=== PATIENT | female | born 1980 | race Caucasian/White ===

== ENCOUNTER 2018-01-14 11:57 | Inpatient (IN) ==
--- NOTE | 2018-01-14 12:03 | Emergency Department Note ---
Disposition Clinical Impression: Suicidal ideation Disposition: Admitted As Inpatient Condition: Fair Time of Disposition: 15:11 Psych HPI - General Chief Complaint: ED Psychiatric Symptoms Stated Complaint: suicidal Source: patient, EMS Mode of arrival: EMS Limitations: no limitations Nursing Notes Reviewed: Yes Vital Signs Reviewed: Yes - History of Present Illness HPI Narrative: 37-year-old female history of anxiety and bipolar presents emergency department via EMS for suicidal ideation. Patient has been feeling more depressed since yesterday and called her counselor to be evaluated today. Patient reports taking Zoloft, Vesteril, Klonopin for her psychiatric issues for many years. She reports about a month ago per psychiatry her Geodon was discontinued. Denies taking any other mood stabilizer like [place]. Since then she has been feeling more depressed. Her psychiatrist is Dr. Ladd who evaluated her today at [facility] and sent her for further evaluation. [place] slip signed by [facility] and present with her on transport. She had thoughts of overdosing on her medications or purposely getting in a car accident. She denies history of suicide attempt. She denies any alcohol or recreational drug use. She denies history of admission to psychiatric unit at [facility]. She denies any hallucinations. Denies any physical complaints such as chest pain, shortness of breath, abdominal pain or injuries. Patient is tearful and very anxious. Will obtain medical clearance and have her evaluated by psychiatric service. Pt complaint: suicidal ideation, feels depressed - Related Data Home Medications Medication Instructions Recorded Confirmed Ergocalciferol (VITAMIN D2) 50,000 unit PO QWEEK 01/14/18 01/14/18 [Vitamin D2] Frovatriptan Succinate [Frova] 2.5 mg PO Q2H PRN MDD 5 mg 01/14/18 01/14/18 Losartan Potassium [Cozaar] 50 mg PO DAILY 01/14/18 01/14/18 Sertraline [Zoloft] 100 mg PO DAILY 01/14/18 01/14/18 Valproic Acid [Depakene] 250 mg PO BID 01/14/18 01/14/18 clonazePAM [Klonopin] 1 mg PO BID 01/14/18 01/14/18 hydrOXYzine pamoate [HydrOXYzine 25 - 50 mg PO TID 01/14/18 01/14/18 Pamoate] Allergies Allergy/AdvReac Type Severity Reaction Status Date / Time doxycycline Allergy Unknown Hives Unverified 01/14/18 14:27 All systems ED: reviewed and negative except as stated. Review of Systems: As Per HPI Constitutional: Denies: fever Cardiovascular: Denies: chest pain Respiratory: Denies: cough, dyspnea Gastrointestinal: Denies: abdominal pain, nausea, vomiting Musculoskeletal: Denies: back pain Psychiatric: Reports: anxiety, depression, suicidal thoughts. Denies: auditory hallucinations, visual hallucinations Past Medical History - Past Medical History Attestation: Yes The following information was validated with the patient. Source: patient Physical Exam - General Limitations: no limitations General appearance: alert, in no apparent distress, other (tearful) - Head Head exam: atraumatic, normocephalic, normal inspection - Eye Eye exam: Present: normal appearance, PERRL, EOMI - ENT ENT exam: normal exam, normal oropharynx, mucous membranes moist - Chest Chest inspection: Present: normal inspection, symmetric chest wall rise - Respiratory Respiratory exam: Present: normal lung sounds bilaterally. Absent: respiratory distress, wheezes - Cardiovascular Cardiovascular exam: Present: regular rate, normal rhythm, normal heart sounds - Abdominal Exam Abdominal exam: Present: soft, Non-Tender. Absent: tenderness, distention, guarding, rebound, rigidity - Extremities Exam Extremities exam: Present: normal inspection, full ROM. Absent: tenderness, pedal edema - Back Exam Back exam: Present: normal inspection, full ROM. Absent: tenderness - Neurological Exam Neurological exam: Present: alert, oriented X3, normal gait - Psychiatric Psychiatric exam: Present: depressed, anxious, suicidal ideation - Skin Skin exam: Present: warm, dry, intact, normal color. Absent: cyanosis, diaphoresis Course Course Narrative: Patient is tearful and very anxious. Will obtain medical clearance and have her evaluated by psychiatric service. [place] slip on the patient's chart. She is cooperative. Unremarkable physical exam. - Reevaluation(s) Reevaluation #1: Patient medically cleared. Patient was evaluated by [facility]. Plan to accept the patient after Depakote level. Patients also complaining of some headache will give Tylenol. Patient will be admitted for suicidal ideation. Time: 15:10 Reevaluation #2: Depakote level is low at 33. Patient takes 250 mg BID per medication list. Vital Signs Temperature 98.3 F 01/14/18 12:01 Pulse Rate 94 01/14/18 12:01 Respiratory Rate 18 01/14/18 12:01 Blood Pressure 154/107 01/14/18 12:01 O2 Sat by Pulse Oximetry 98 01/14/18 12:01 Temperature 98.3 F 01/14/18 12:10 Pulse Rate 75 01/14/18 14:35 Respiratory Rate 16 01/14/18 14:35 Blood Pressure 132/83 01/14/18 14:35 O2 Sat by Pulse Oximetry 99 01/14/18 14:35 Oxygen Delivery Oxygen Delivery Room Air Psych - MDM Narrative Medical decision making narrative: Patient was discussed with my attending physician who agrees with ED management and final disposition. They independently evaluated the patient. Please refer to their attestation to this encounter for additional information. This note was generated by [employer] voice recognition software and as a result grammatical or spelling errors may occur using this program. - Medical Records Medical records reviewed: Yes I reviewed the patient's medical records. - Lab Data Result diagrams: 01/14/18 12:25 01/14/18 12:25 Lab Results 01/14/18 01/14/18 01/14/18 Range/Units 12:25 12:25 12:30 WBC 10.3 (4.3-11.1) K/mcL RBC 4.98 H (3.82-4.97) M/mcL Hgb 15.8 H (11.5-15.4) g/dL Hct 44.3 (35.3-44.9) % MCV 89.0 (83.0-100.0) fL MCH 31.7 (28.0-33.3) pg MCHC 35.7 H (31.6-35.5) g/dL RDW 12.0 (11.5-14.5) % Plt Count 325 (140-400) K/mcL MPV 9.8 (9.4-12.4) fL Immature Gran % 0.3 (0-4) % Seg Neutrophils % 62.8 % Lymphocytes % 29.5 % Monocytes % 4.4 % Eosinophils % 2.2 % Basophils % 0.8 % Neutrophils # 6.5 (1.6-8.9) K/mcL Lymphocytes # 3.0 (0.6-4.6) K/mcL Monocytes # 0.5 (0.0-1.3) K/mcL Eosinophils # 0.2 (0.0-0.6) K/mcL Basophils # 0.1 (0.0-0.2) K/mcL Sodium 136 (136-145) mEq/L Potassium 3.6 (3.5-5.1) mEq/L Chloride 106 (98-107) mEq/L Carbon Dioxide 23 (23-29) mEq/L BUN 9 (6-20) mg/dL Creatinine 0.81 (0.60-1.20) mg/dL Est GFR ( Amer) > 60 (> 60) Est GFR (Non-Af Amer) > 60 (> 60) BUN/Creatinine Ratio 11 (6-26) Glucose 92 (70-105) mg/dL Calculated Osmolality 280 (280-300) Calcium 9.3 (8.6-10.3) mg/dL Urine Color Yellow (Yellow) Urine Clarity Cloudy A (Clear) Urine pH 7.0 (5.0-8.0) pH Units Ur Specific [place] 1.008 L (1.010-1.025) Urine Protein Negative (Neg-Trace) mg/dL Urine Glucose (UA) Normal (Normal) mg/dL Urine Ketones Negative (Negative) mg/dL Urine Blood Trace H (Negative) Urine Nitrite Negative (Negative) Urine Bilirubin Negative (Negative) Urine Urobilinogen Normal (Normal) mg/dL Ur Leukocyte Esterase Negative (Negative) Urine Microscopic RBC 5-15 H (0-3) per hpf Urine Microscopic WBC 0-3 (0-3) per hpf Ur Squamous Epith Cells Many H (None-Few) per lpf Urine Bacteria None Seen (None-Few) per hpf Hyaline Casts None Seen (None-Few) per lpf Salicylates < 2.5 L (15.0-30.0) mg/dL Urine Opiates Screen (Czyimz=800) ng/mL Acetaminophen < 10 L (10-20) mcg/mL Ur Barbiturates Screen (Covwwv=125) ng/mL Valproic Acid 33 L (50-100) mcg/mL Ur Phencyclidine Scrn (Cutoff=25) ng/mL Ur Amphetamines Screen (Rwduie=2490) ng/mL U Benzodiazepines Scrn (Ozmnyj=525) ng/mL Urine Cocaine Screen (Cutoff= 300) ng/mL U Marijuana (THC) Screen (Cutoff = 50) ng/mL Ethyl Alcohol < 10 (Less than 10) mg/dL 01/14/18 Range/Units 12:30 WBC (4.3-11.1) K/mcL RBC (3.82-4.97) M/mcL Hgb (11.5-15.4) g/dL Hct (35.3-44.9) % MCV (83.0-100.0) fL MCH (28.0-33.3) pg MCHC (31.6-35.5) g/dL RDW (11.5-14.5) % Plt Count (140-400) K/mcL MPV (9.4-12.4) fL Immature Gran % (0-4) % Seg Neutrophils % % Lymphocytes % % Monocytes % % Eosinophils % % Basophils % % Neutrophils # (1.6-8.9) K/mcL Lymphocytes # (0.6-4.6) K/mcL Monocytes # (0.0-1.3) K/mcL Eosinophils # (0.0-0.6) K/mcL Basophils # (0.0-0.2) K/mcL Sodium (136-145) mEq/L Potassium (3.5-5.1) mEq/L Chloride (98-107) mEq/L Carbon Dioxide (23-29) mEq/L BUN (6-20) mg/dL Creatinine (0.60-1.20) mg/dL Est GFR ( Amer) (> 60) Est GFR (Non-Af Amer) (> 60) BUN/Creatinine Ratio (6-26) Glucose (70-105) mg/dL Calculated Osmolality (280-300) Calcium (8.6-10.3) mg/dL Urine Color (Yellow) Urine Clarity (Clear) Urine pH (5.0-8.0) pH Units Ur Specific [place] (1.010-1.025) Urine Protein (Neg-Trace) mg/dL Urine Glucose (UA) (Normal) mg/dL Urine Ketones (Negative) mg/dL Urine Blood (Negative) Urine Nitrite (Negative) Urine Bilirubin (Negative) Urine Urobilinogen (Normal) mg/dL Ur Leukocyte Esterase (Negative) Urine Microscopic RBC (0-3) per hpf Urine Microscopic WBC (0-3) per hpf Ur Squamous Epith Cells (None-Few) per lpf Urine Bacteria (None-Few) per hpf Hyaline Casts (None-Few) per lpf Salicylates (15.0-30.0) mg/dL Urine Opiates Screen Negative (Ovtqdr=937) ng/mL Acetaminophen (10-20) mcg/mL Ur Barbiturates Screen Positive H (Khjvbv=451) ng/mL Valproic Acid (50-100) mcg/mL Ur Phencyclidine Scrn Negative (Cutoff=25) ng/mL Ur Amphetamines Screen Negative (Ehwmsq=5139) ng/mL U Benzodiazepines Scrn Negative (Uywdrx=808) ng/mL Urine Cocaine Screen Negative (Cutoff= 300) ng/mL U Marijuana (THC) Screen Negative (Cutoff = 50) ng/mL Ethyl Alcohol (Less than 10) mg/dL Psychiatric Medical Clearance - Medical Clearance Checklist Medical History: No Social History Section defined Current Vitals: Last Vital Signs Temp 98.3 F 01/14/18 12:10 Pulse 75 01/14/18 14:35 Resp 16 01/14/18 14:35 BP 132/83 01/14/18 14:35 Pulse Ox 99 01/14/18 14:35 Psychiatric Lab Panel: Drug Levels and Toxicity 01/14/18 01/14/18 12:25 12:30 Urine Opiates Screen Negative Acetaminophen < 10 L Ur Barbiturates Screen Positive H Ur Phencyclidine Scrn Negative Ur Amphetamines Screen Negative U Benzodiazepines Scrn Negative Urine Cocaine Screen Negative U Marijuana (THC) Screen Negative Ethyl Alcohol < 10 Abnormal Labs: Abnormal lab results RBC 4.98 M/mcL (3.82-4.97) H 01/14/18 12:25 Hgb 15.8 g/dL (11.5-15.4) H 01/14/18 12:25 MCHC 35.7 g/dL (31.6-35.5) H 01/14/18 12:25 Urine Clarity Cloudy (Clear) A 01/14/18 12:30 Ur Specific [place] 1.008 (1.010-1.025) L 01/14/18 12:30 Urine Blood Trace (Negative) H 01/14/18 12:30 Urine Microscopic RBC 5-15 per hpf (0-3) H 01/14/18 12:30 Ur Squamous Epith Cells Many per lpf (None-Few) H 01/14/18 12:30 Salicylates < 2.5 mg/dL (15.0-30.0) L 01/14/18 12:25 Acetaminophen < 10 mcg/mL (10-20) L 01/14/18 12:25 Ur Barbiturates Screen Positive ng/mL (Gfjpcx=183) H 01/14/18 12:30 Valproic Acid 33 mcg/mL (50-100) L 01/14/18 12:25 Statement of Medical Clearance: I have evaluated the patient, reviewed diagnostic information, and certify that the patient's medical condition is sufficiently stable that transfer to the psychiatric unit does not pose a significant risk of deterioration.
--- NOTE | 2018-01-14 12:14 | Emergency Department Note ---
Disposition Clinical Impression: Suicidal ideation Disposition: Still a Patient Condition: Fair Forms: ED Satisfaction Letter General Adult HPI - General Chief complaint: ED Psychiatric Symptoms Stated complaint: suicidal Source: patient, EMS Mode of arrival: EMS Limitations: no limitations - History of Present Illness Pain Scale: 0 - Related Data Home Medications Medication Instructions Recorded Confirmed No Known Home Drugs 01/14/18 01/14/18 Allergies Allergy/AdvReac Type Severity Reaction Status Date / Time doxycycline Allergy Unknown Hives Unverified 07/12/17 00:09 Constitutional: Denies: fever Cardiovascular: Denies: chest pain Respiratory: Denies: cough, dyspnea Gastrointestinal: Denies: abdominal pain, nausea, vomiting Musculoskeletal: Denies: back pain Psychiatric: Reports: anxiety, depression, suicidal thoughts. Denies: auditory hallucinations, visual hallucinations Past Medical History - Past Medical History Medical history: Reports: hyperlipidemia, hypertension, migraine, seizures Psychiatric history: Reports: anxiety, depression - Social History Smoking Status: Current every day smoker Smokeless Tobacco Status: No Alcohol use: Reports: none Drug use: Reports: none Physical Exam - General Limitations: no limitations General appearance: alert, in no apparent distress, other (tearful) Course - Reevaluation(s) Reevaluation #1: ATTESTATION NOTE I examined this patient and my medical decision-making was reviewed with the STORAGE WORKER/PA/Advanced Practice Nurse/Resident Physician. I agree with the documented findings, disposition and treatment plan as described except to the extent set forth below. ED attending note: Patient seen with emergency medicine resident Dr. Alex Newby. We independently evaluated the patient. We independently had face-to- face contact with the patient. Please see a copy of his note for details of the history and physical, evaluation, management and disposition of this emergency Department patient. Briefly: 37-year-old female history of anxiety and bipolar disorder presents by EMS from an outpatient mental health clinic for suicidal ideations. Patient has been off her psych medications per her mental health provider for about a month no particular stressors when she went for an interview this morning in the clinic she started for suicidal ideations and a plan for ultrasound overdose my medicines". Patient was pink slipped and transported here for medical evaluation clearance and then mental health evaluation and placement. Disposition pending. He is awake alert cooperative and comfortable. Time: 12:13 Vital Signs Temperature 98.3 F 01/14/18 12:01 Pulse Rate 94 01/14/18 12:01 Respiratory Rate 18 01/14/18 12:01 Blood Pressure 154/107 01/14/18 12:01 O2 Sat by Pulse Oximetry 98 01/14/18 12:01 Temperature 98.3 F 01/14/18 12:10 Pulse Rate 94 01/14/18 12:10 Respiratory Rate 18 01/14/18 12:10 Blood Pressure 154/107 01/14/18 12:10 O2 Sat by Pulse Oximetry 98 01/14/18 12:10 Oxygen Delivery Oxygen Delivery Room Air
[2018-01-14 12:36] LABS: Basophils # 0.1 K/mcL (0.0-0.2); Basophils % 0.8 %; Eosinophils # 0.2 K/mcL (0.0-0.6); Eosinophils % 2.2 %; Hematocrit 44.3 % (35.3-44.9); Hemoglobin 15.8 g/dL (11.5-15.4); Immature Granulocytes % 0.3 % (0-4); Lymphocytes % 29.5 %; Mean Corpuscular HGB Conc 35.7 g/dL (31.6-35.5); Mean Corpuscular Hemoglobin 31.7 pg (28.0-33.3); Mean Platelet Volume 9.8 fL (9.4-12.4); Monocytes # 0.5 K/mcL (0.0-1.3); Monocytes % 4.4 %; Neutrophils # 6.5 K/mcL (1.6-8.9); Platelet Count 325 K/mcL (140-400); Red Blood Count 4.98 M/mcL (3.82-4.97); Segmented Neutrophils % 62.8 %
[2018-01-14 12:41] LABS: Bilirubin,Urine Negative (Negative); Blood,Urine Trace (Negative); Clarity,Urine Cloudy (Clear); Color,Urine Yellow (Yellow); Glucose,Urine (UA) Normal (Normal); Ketones,Urine Negative (Negative); Leukocyte Esterase,Urine Negative (Negative); Nitrite,Urine Negative (Negative); Protein,Urine Negative (Neg-Trace); Specific Gravity,Urine 1.008 (1.010-1.025); Urobilinogen,Urine Normal (Normal)
[2018-01-14 12:43] LABS: Bacteria,Urine None Seen per hpf (None-Few); Hyaline Casts,Urine None Seen per lpf (None-Few); Squamous Epithelial Cell,Urine Many per lpf (None-Few); WBC,Urine 0-3 per hpf (0-3)
[2018-01-14 12:58] LABS: Acetaminophen < 10 mcg/mL (10-20); BUN/Creatinine Ratio 11 (6-26); Blood Urea Nitrogen 9 mg/dL (6-20); Calcium 9.3 mg/dL (8.6-10.3); Carbon Dioxide 23 mEq/L (23-29); Chloride 106 mEq/L (98-107); Ethanol < 10 mg/dL (Less than 10); Glucose 92 mg/dL (70-105); Osmolality,Calculated 280 (280-300); Potassium 3.6 mEq/L (3.5-5.1); Salicylate < 2.5 mg/dL (15.0-30.0); Sodium 136 mEq/L (136-145); eGFR For African Americans > 60 (> 60); eGFR For Non-African Americans > 60 (> 60)
[2018-01-14 13:42] LABS: Amphetamine Screen,Urine Negative ng/mL (Cutoff=1000); Barbiturate Screen,Urine Positive ng/mL (Cutoff=200); Benzodiazepines Screen,Urine Negative ng/mL (Cutoff=200); Cannabinoid Screen,Urine Negative ng/mL (Cutoff = 50); Cocaine Screen,Urine Negative ng/mL (Cutoff= 300); Opiate Screen,Urine Negative ng/mL (Cutoff=300); Phencyclidine Screen,Urine Negative ng/mL (Cutoff=25)
[2018-01-14 15:51] LABS: Valproate 33 mcg/mL (50-100)
[2018-01-14] MEDS ORDERED: Acetaminophen 325 MG TABLET PO PRN (16:50)
[2018-01-14] MEDS ORDERED: *HR* LORazepam 1 MG TABLET PO PRN (16:50)
[2018-01-14] MEDS ORDERED: *HR* LORazepam 2 MG/ML VIAL IM PRN (16:50)
[2018-01-14] MEDS ORDERED: Mag Hydrox/Al Hydrox/Simeth 30 ML UDC PO PRN (16:50)
[2018-01-14] MEDS ORDERED: MOM Conc 10 ML UD.LIQ PO PRN (16:50)
[2018-01-14] MEDS ORDERED: Haloperidol Lactate 5 MG/ML VIAL IM PRN (16:50)
[2018-01-14] MEDS ORDERED: hydrOXYzine pamoate 25 MG CAPSULE PO PRN (16:50)
[2018-01-14] MEDS: clonazePAM 1 MG TABLET PO SCH ×2 (17:52→22:00)
[2018-01-14] MEDS: Nicotine 21 MG PATCH.TD24 TD SCH (17:53)
[2018-01-14] MEDS: hydrOXYzine pamoate 25 MG CAPSULE PO SCH (20:35)
[2018-01-14] MEDS: traZODone 50 MG TABLET PO PRN (20:35)
[2018-01-14] MEDS: Valproic Acid 250 MG CAPSULE PO SCH (21:12)
[2018-01-15] MEDS: Nicotine 21 MG PATCH.TD24 TD SCH (10:30)
[2018-01-15] MEDS: clonazePAM 1 MG TABLET PO SCH (10:30)
[2018-01-15] MEDS: Valproic Acid 250 MG CAPSULE PO SCH ×2 (10:30→21:31)
[2018-01-15] MEDS: hydrOXYzine pamoate 25 MG CAPSULE PO SCH ×3 (10:30→21:32)
[2018-01-15] MEDS ORDERED: clonazePAM 0.5 MG TABLET PO PRN (11:54)
--- NOTE | 2018-01-15 12:02 | Psychiatry History & Physical ---
Date of Encounter: 01/15/18 Time of Encounter: 11:20 History of Present Illness Patient Stated Chief Complaint: Depression and suicidal ideation Medicare Admission Attestation: For traditional Medicare patients the provided hospital inpatient services are reasonable and necessary and in the case of services not specified as inpatient -only under 42 CFR 419.22 (n), that they are appropriately provided as inpatient services in accordance 42 CFR 412.3. For Critical Access Hospital the patient may reasonably be expected to be discharged or transferred to a hospital within 96 hours after admission to the Critical Access Hospital. Admitted From: Emergency Dept History of Present Illness: Ms. Richard is a 37 year old female referred for admission from Dr. Arreola's office for depression and suicidal ideation. Patient had long history of treatment for bipolar disorder and an anxiety disorder and has been on medication with medication changes recently. Patient reports increasing depression hypersomnia and fatigue, inability to function and has been taking time off from work and using medication time because she is unable to attend work schedule. Also she reports having new medication added Depakote for what would be seizures. Records indicated the patient was seen and evaluated by neurology and cardiology to assess episodes of unresponsiveness, they concluded that neither seizure or syncope can be considered and they considered an anxiety related. This episode started in the last year or so. Past Med Surg Social Fam HX - Past Medical History Medical history: hyperlipidemia, hypertension, migraine, seizures - Past Psychiatric History Psychiatric history: Reports: bipolar, depression - Social History Smoking Status: Current every day smoker Smokeless Tobacco Status: No Alcohol use: none Drug use: none Medications & Allergies Ergocalciferol (VITAMIN D2) [Vitamin D2] 50,000 unit PO QWEEK 01/14/18 [History] Frovatriptan Succinate [Frova] 2.5 mg PO Q2H PRN MDD 5 mg 01/14/18 [History] Losartan Potassium [Cozaar] 50 mg PO DAILY 01/14/18 [History] Sertraline [Zoloft] 100 mg PO DAILY 01/14/18 [History] Valproic Acid [Depakene] 250 mg PO BID 01/14/18 [History] clonazePAM [Klonopin] 1 mg PO BID 01/14/18 [History] hydrOXYzine pamoate [HydrOXYzine Pamoate] 25 - 50 mg PO TID 01/14/18 [History] 3 Allergy/AdvReac Type Severity Reaction Status Date / Time doxycycline Allergy Unknown Hives Verified 01/14/18 17:19 Review of Systems Psychiatric: Reports: depression, anxiety, abnormal sleep pattern, suicidal ideation, change in appetite, anhedonia, difficulty concentrating Exam - HEENT Head exam IM: Present: atraumatic Eye exam IM: Present: EOMI, normal appearance, PERRL ENT exam IM: Present: normal exam - Neurological Neurological exam: Present: CN II-XII intact - Respiratory Respiratory exam IM: Present: CTAB - GI/Abdominal GI/Abdominal exam IM: Present: normal bowel sounds, soft. Absent: tenderness - Extremities Extremities exam IM: Present: full ROM - Skin Skin exam IM: Present: dry, warm - Constitutional Vitals: Temp Pulse Resp BP Pulse Ox 99.3 F 20 87 145/107 99 01/15/18 09:00 01/15/18 09:00 01/15/18 09:00 01/15/18 09:00 01/14/18 14:35 General appearance: age & developmentally appropriate, well-groomed, well- nourished, obese - Musculoskeletal Gait: normal Station: relaxed Strength & Tone: normal for patient - Psychiatric Patient Orientation: Yes Person, Yes Time, Yes Place Level of alertness: Alert, Sedated Behavior: calm, cooperative, withdrawn Psychomotor activity: Slowed Eye Contact: Maintains Eye Contact Mood Description: Depressed, Anxious Affect description: congruent with mood, constricted, blunted Speech Volume: Normal, Soft/Quiet Speech pattern: normal rate, normal rhythm, normal tone, fluent, spontaneous Language & Vocabulary: consistent with education Thought Process: Linear, Goal Oriented Thought Content: Yes Suicidal ideation, No Homicidal ideation, No Overt delusions Perceptual Disturbances: No Auditory hallucinations, No Visual hallucinations Attention Span Ability: Capable of Focused Attention Memory Description: Grossly Intact Patient Reliability: Reliable Historian Fund of knowledge: Yes abstraction ability, Yes average, Yes aware of current events Intelligence Estimate: Average Judgment: Limited Insight: Partial Results - Labs Labs: Laboratory Last Values WBC 10.3 K/mcL (4.3-11.1) 01/14/18 12:25 RBC 4.98 M/mcL (3.82-4.97) H 01/14/18 12:25 Hgb 15.8 g/dL (11.5-15.4) H 01/14/18 12:25 Hct 44.3 % (35.3-44.9) 01/14/18 12:25 MCV 89.0 fL (83.0-100.0) 01/14/18 12:25 MCH 31.7 pg (28.0-33.3) 01/14/18 12:25 MCHC 35.7 g/dL (31.6-35.5) H 01/14/18 12:25 RDW 12.0 % (11.5-14.5) 01/14/18 12:25 Plt Count 325 K/mcL (140-400) 01/14/18 12:25 MPV 9.8 fL (9.4-12.4) 01/14/18 12:25 Immature Gran % 0.3 % (0-4) 01/14/18 12:25 Seg Neutrophils % 62.8 % 01/14/18 12:25 Lymphocytes % 29.5 % 01/14/18 12:25 Monocytes % 4.4 % 01/14/18 12:25 Eosinophils % 2.2 % 01/14/18 12:25 Basophils % 0.8 % 01/14/18 12:25 Neutrophils # 6.5 K/mcL (1.6-8.9) 01/14/18 12:25 Lymphocytes # 3.0 K/mcL (0.6-4.6) 01/14/18 12:25 Monocytes # 0.5 K/mcL (0.0-1.3) 01/14/18 12:25 Eosinophils # 0.2 K/mcL (0.0-0.6) 01/14/18 12:25 Basophils # 0.1 K/mcL (0.0-0.2) 01/14/18 12:25 Sodium 136 mEq/L (136-145) 01/14/18 12:25 Potassium 3.6 mEq/L (3.5-5.1) 01/14/18 12:25 Chloride 106 mEq/L (98-107) 01/14/18 12:25 Carbon Dioxide 23 mEq/L (23-29) 01/14/18 12:25 BUN 9 mg/dL (6-20) 01/14/18 12:25 Creatinine 0.81 mg/dL (0.60-1.20) 01/14/18 12:25 Est GFR ( Amer) > 60 (> 60) 01/14/18 12:25 Est GFR (Non-Af Amer) > 60 (> 60) 01/14/18 12:25 BUN/Creatinine Ratio 11 (6-26) 01/14/18 12:25 Glucose 92 mg/dL (70-105) 01/14/18 12:25 Calculated Osmolality 280 (280-300) 01/14/18 12:25 Calcium 9.3 mg/dL (8.6-10.3) 01/14/18 12:25 Urine Color Yellow (Yellow) 01/14/18 12:30 Urine Clarity Cloudy (Clear) A 01/14/18 12:30 Urine pH 7.0 pH Units (5.0-8.0) 01/14/18 12:30 Ur Specific [place] 1.008 (1.010-1.025) L 01/14/18 12:30 Urine Protein Negative mg/dL (Neg-Trace) 01/14/18 12:30 Urine Glucose (UA) Normal mg/dL (Normal) 01/14/18 12:30 Urine Ketones Negative mg/dL (Negative) 01/14/18 12:30 Urine Blood Trace (Negative) H 01/14/18 12:30 Urine Nitrite Negative (Negative) 01/14/18 12:30 Urine Bilirubin Negative (Negative) 01/14/18 12:30 Urine Urobilinogen Normal mg/dL (Normal) 01/14/18 12:30 Ur Leukocyte Esterase Negative (Negative) 01/14/18 12:30 Urine Microscopic RBC 5-15 per hpf (0-3) H 01/14/18 12:30 Urine Microscopic WBC 0-3 per hpf (0-3) 01/14/18 12:30 Ur Squamous Epith Cells Many per lpf (None-Few) H 01/14/18 12:30 Urine Bacteria None Seen per hpf (None-Few) 01/14/18 12:30 Hyaline Casts None Seen per lpf (None-Few) 01/14/18 12:30 Urine Test Negative (Negative) 01/14/18 12:30 Salicylates < 2.5 mg/dL (15.0-30.0) L 01/14/18 12:25 Urine Opiates Screen Negative ng/mL (Mpyavd=801) 01/14/18 12:30 Acetaminophen < 10 mcg/mL (10-20) L 01/14/18 12:25 Ur Barbiturates Screen Positive ng/mL (Xqhwhg=978) H 01/14/18 12:30 Valproic Acid 33 mcg/mL (50-100) L 01/14/18 12:25 Ur Phencyclidine Scrn Negative ng/mL (Cutoff=25) 01/14/18 12:30 Ur Amphetamines Screen Negative ng/mL (Kbptvi=8148) 01/14/18 12:30 U Benzodiazepines Scrn Negative ng/mL (Holqka=044) 01/14/18 12:30 Urine Cocaine Screen Negative ng/mL (Cutoff= 300) 01/14/18 12:30 U Marijuana (THC) Screen Negative ng/mL (Cutoff = 50) 01/14/18 12:30 Ethyl Alcohol < 10 mg/dL (Less than 10) 01/14/18 12:25 Assessment and Plan (1) Bipolar disorder current episode depressed Current visit: Yes Status: Acute Plan: Admit inpatient for safety and stabilization, Close observation, Suicide Precautions per unit protocol, Encourage participation in unit milieu, Group Therapy, Monitor sleep, Monitor appetite Additional Plan: Effexor XR 75 mg daily. Benefits and side effects were discussed with the patient she is agreeable to start Decrease Klonopin to 0.5 mg twice a day when necessary for anxiety. Risks, benefits, side effects, alternatives discussed w/pt: Yes Patient agreeable to treatment: Yes Qualifiers: Qualified Code(s): F31.4 - Bipolar disorder, current episode depressed, severe, without psychotic features
[2018-01-15] MEDS: Venlafaxine XR (24 HR) 75 MG CAP.ER.24H PO SCH (13:58)
[2018-01-15] MEDS: traZODone 50 MG TABLET PO PRN (21:32)
[2018-01-15] MEDS: FROVATRIPTAN SUCCINATE 2.5 MG PO PRN (21:35)
--- NOTE | 2018-01-16 10:57 | Psychiatry Progress Note ---
Date of Encounter: 01/16/18 Time of Encounter: 10:30 Subjective Interval history: Patient seen for follow-up. Case discussed with nursing staff. Staff report she is depressed with flat affect and seclusive to her room. She denies any problem with sleep continued to complain of feeling tired and fatigued. I had a long discussion with her regarding her treatment history and previous medications. 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 Prior to this she believe she was functioning adequate level. Encourage her to journal her thoughts and her interest and activities that she stopped doing and challenge herself to do it while medication changes are being done. Review of Systems Psychiatric: Reports: depression, anxiety, abnormal sleep pattern, suicidal ideation, change in appetite, anhedonia, difficulty concentrating Results - Vital Signs Vital Signs: Temp Pulse Resp BP Pulse Ox 97.6 F 87 18 130/92 99 01/16/18 09:00 01/16/18 09:00 01/16/18 09:00 01/16/18 09:00 01/14/18 14:35 Assessment and Plan (1) Bipolar disorder current episode depressed Current visit: Yes Status: Acute Plan: Continue hospitalization, Close observation, Suicide Precautions per unit protocol, Encourage participation in unit milieu, Group Therapy, Monitor sleep, Monitor appetite Risks, benefits, side effects, alternatives discussed w/pt: Yes Patient agreeable to treatment: Yes Consult Discharge Plan - Plan Referrals: [facility] [Outside] - 01/21/18 3:00 pm (The above appointment is with Yareli Shirley for mental health counseling services. You will also see Dr. Messina for outpatient psychiatric assessment and medication management services on 02/03/2018 at 1:00 PM. Please note this is a new appointment date and time. Your previously scheduled appointment with Dr. Messina had to be changed. Please arrive 10 minutes early to all appointments to complete the check-in process. Please bring your insurance card (or [facility] award letter) and photo ID. If you are unable to keep any scheduled appointment, 24 hour business notice of cancellation is expected. The above appointment(s) reflects first availability. You may contact the office regularly to check for cancellations that may allow you to be seen sooner. ) Psychiatry Exam - Constitutional Vitals: Temp Pulse Resp BP Pulse Ox 97.6 F 87 18 130/92 99 01/16/18 09:00 01/16/18 09:00 01/16/18 09:00 01/16/18 09:00 01/14/18 14:35 General appearance: age & developmentally appropriate, well-groomed, well- nourished, obese - Musculoskeletal Gait: normal Station: relaxed Strength & Tone: normal for patient - Psychiatric Patient Orientation: Yes Person, Yes Time, Yes Place Level of alertness: Alert Behavior: calm, cooperative, guarded Psychomotor activity: Slowed Eye Contact: Maintains Eye Contact Mood Description: Euthymic/stable, Depressed Affect description: congruent with mood, constricted Speech Volume: Normal Speech pattern: normal rate, normal rhythm, normal tone, fluent, spontaneous Language & Vocabulary: consistent with education Thought Process: Linear, Goal Oriented Thought Content: No Suicidal ideation, No Homicidal ideation, No Overt delusions Perceptual Disturbances: No Auditory hallucinations, No Visual hallucinations Attention Span Ability: Capable of Focused Attention Memory Description: Grossly Intact Patient Reliability: Reliable Historian Fund of knowledge: Yes abstraction ability, Yes aware of current events Intelligence Estimate: Average Judgment: Limited Insight: Partial
[2018-01-16] MEDS: Nicotine 21 MG PATCH.TD24 TD SCH (11:35)
[2018-01-16] MEDS: hydrOXYzine pamoate 25 MG CAPSULE PO SCH ×3 (11:36→21:44)
[2018-01-16] MEDS: Valproic Acid 250 MG CAPSULE PO SCH ×2 (11:36→21:44)
[2018-01-16] MEDS: Venlafaxine XR (24 HR) 75 MG CAP.ER.24H PO SCH (11:36)
[2018-01-16] MEDS: FROVATRIPTAN SUCCINATE 2.5 MG PO PRN (14:01)
[2018-01-16] MEDS: traZODone 50 MG TABLET PO PRN (21:44)
[2018-01-17] MEDS: Nicotine 21 MG PATCH.TD24 TD SCH (08:54)
[2018-01-17] MEDS: hydrOXYzine pamoate 25 MG CAPSULE PO SCH ×3 (08:55→21:28)
[2018-01-17] MEDS: Valproic Acid 250 MG CAPSULE PO SCH ×2 (08:56→21:28)
[2018-01-17] MEDS: Venlafaxine XR (24 HR) 75 MG CAP.ER.24H PO SCH (08:56)
--- NOTE | 2018-01-17 11:37 | Psychiatry Progress Note ---
Date of Encounter: 01/17/18 Time of Encounter: 10:50 Subjective Interval history: Patient seen for follow-up. Case discussed was nursing staff. Staff reports she is compliant with medication seclusive to her room most of the time but interacts appropriately with peers and staff. She denies suicidal ideation. She continued to show blunted affect and some degree of psychomotor retardation. She is emotionally passive and was encouraged to make notes regarding activities and hobbies that can be enjoyable and she is working on assignments. 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 Continued to be guarded. Review of Systems Psychiatric: Reports: depression, anxiety, abnormal sleep pattern, suicidal ideation, change in appetite, anhedonia, difficulty concentrating Results - Vital Signs Vital Signs: Temp Pulse Resp BP Pulse Ox 98 F 88 16 121/82 99 01/17/18 09:00 01/17/18 09:00 01/17/18 09:00 01/17/18 09:00 01/14/18 14:35 Assessment and Plan (1) Bipolar disorder current episode depressed Current visit: Yes Status: Acute Plan: Continue hospitalization, Close observation, Suicide Precautions per unit protocol, Encourage participation in unit milieu, Group Therapy, Monitor sleep, Monitor appetite Risks, benefits, side effects, alternatives discussed w/pt: Yes Patient agreeable to treatment: Yes Consult Discharge Plan - Plan Referrals: [facility] [Outside] - 01/21/18 3:00 pm (The above appointment is with Yareli Shirley for mental health counseling services. You will also see Dr. Messina for outpatient psychiatric assessment and medication management services on 02/03/2018 at 1:00 PM. Please note this is a new appointment date and time. Your previously scheduled appointment with Dr. Messina had to be changed. Please arrive 10 minutes early to all appointments to complete the check-in process. Please bring your insurance card (or [facility] award letter) and photo ID. If you are unable to keep any scheduled appointment, 24 hour business notice of cancellation is expected. The above appointment(s) reflects first availability. You may contact the office regularly to check for cancellations that may allow you to be seen sooner. ) Psychiatry Exam - Constitutional Vitals: Temp Pulse Resp BP Pulse Ox 98 F 88 16 121/82 99 01/17/18 09:00 01/17/18 09:00 01/17/18 09:00 01/17/18 09:00 01/14/18 14:35 General appearance: age & developmentally appropriate, well-groomed, well- nourished, obese - Musculoskeletal Gait: normal Station: relaxed Strength & Tone: normal for patient - Psychiatric Patient Orientation: Yes Person, Yes Time, Yes Place Level of alertness: Alert Behavior: calm, cooperative, guarded, withdrawn Psychomotor activity: Normal Eye Contact: Maintains Eye Contact Mood Description: Euthymic/stable Affect description: congruent with mood, constricted, blunted Speech Volume: Normal Speech pattern: normal rate, normal rhythm, normal tone, fluent, spontaneous, limited Language & Vocabulary: consistent with education Thought Process: Linear, Goal Oriented Thought Content: No Suicidal ideation, No Homicidal ideation, No Overt delusions Perceptual Disturbances: No Auditory hallucinations, No Visual hallucinations Attention Span Ability: Capable of Focused Attention Memory Description: Grossly Intact Patient Reliability: Reliable Historian Fund of knowledge: Yes abstraction ability, Yes aware of current events Intelligence Estimate: Average Judgment: Limited Insight: Partial
[2018-01-17] MEDS: traZODone 50 MG TABLET PO PRN (22:36)
--- NOTE | 2018-01-18 09:07 | Discharge Summary ---
Date of Encounter: 01/18/18 Time of Encounter: 08:50 Diagnosis - Discharge Diagnosis (1) Bipolar disorder current episode depressed Status: Acute Qualifiers: Current episode severity: mild Qualified Code(s): F31.31 - Bipolar disorder , current episode depressed, mild Medications - Discharge Medications Prescriptions: Nicotine Patch [Nicoderm] 21 mg TD DAILY 30 Days #30 patch.td24 Venlafaxine XR (24 HR) [Effexor XR] 75 mg PO DAILY 30 Days #30 cap.er.24h Ergocalciferol (VITAMIN D2) [Vitamin D2] 50,000 unit PO QWEEK 01/14/18 [History] Frovatriptan Succinate [Frova] 2.5 mg PO Q2H PRN MDD 5 mg 01/14/18 [History] Losartan Potassium [Cozaar] 50 mg PO DAILY 01/14/18 [History] Sertraline [Zoloft] 100 mg PO DAILY 01/14/18 [History] Valproic Acid [Depakene] 250 mg PO BID 01/14/18 [History] clonazePAM [Klonopin] 1 mg PO BID 01/14/18 [History] hydrOXYzine pamoate [HydrOXYzine Pamoate] 25 - 50 mg PO TID 01/14/18 [History] Nicotine Patch [Nicoderm] 21 mg TD DAILY 30 Days #30 patch.td24 01/18/18 [Rx] Venlafaxine XR (24 HR) [Effexor XR] 75 mg PO DAILY 30 Days #30 cap.er.24h [Rx] hydrOXYzine pamoate [HydrOXYzine Pamoate] 25 mg PO TID PRN capsule 01/18/18 [Rx ] 3 Allergy/AdvReac Type Severity Reaction Status Date / Time doxycycline Allergy Unknown Hives Verified 01/14/18 17:19 Provider Date of admission: 01/14/18 15:16 Primary care physician: PCP NONE Psychiatry Exam - Constitutional Vitals: Temp Pulse Resp BP Pulse Ox 99.4 F 83 18 131/98 99 01/17/18 20:52 01/17/18 20:52 01/17/18 20:52 01/17/18 20:52 01/14/18 14:35 General appearance: age & developmentally appropriate - Musculoskeletal Gait: normal Strength & Tone: normal for patient - Psychiatric Patient Orientation: Yes Person, Yes Time, Yes Place, Yes Circumstance Level of alertness: Alert Behavior: calm, cooperative, anxious (mildly (first time meeting)) Psychomotor activity: Normal Eye Contact: Maintains Eye Contact Mood Description: Euthymic/stable Affect description: congruent with mood Speech Volume: Normal Speech pattern: normal rate, normal rhythm, normal tone Language & Vocabulary: consistent with education Thought Process: Intact, Logical, Linear Attention Span Ability: Capable of Focused Attention Memory Description: Grossly Intact Patient Reliability: Reliable Historian Fund of knowledge: Yes abstraction ability Intelligence Estimate: Average Judgment: Good Insight: Partial Hospital Course Hospital course: Ms. Richard is a 37 year old female who was hospitalized after having feelings of depression and thoughts of suicide. She participated in groups and individual therapy while on the unit. She talks about her medication modification that helped the most. Here antidepressant was augmented with Effexor XR at 75 mg po q AM. As well as her Klonopin being decreased and stopped; used only as a PRN. She had been feeling low energy and tired all the time. She had no energy, no desire to do anything. She told me during exit interview, "I feel good. I feel better being off the Klonopin. I surely don't feel like I did last when I came in here." She describes her head feeling more "clear" and having more energy.. "I don't feel sleepy all the time. I can think and focus on my thoughts." She no longer feels depressed and slow. She is hopeful in returning home. She has a supportive and children at home that need her. "I have never been away from my kids so long. I'm ready to go home." She denies any side effects of the Effexor XR. She is interested in quitting smoking and wants to continue on the nicotine patches for smoking cessation. She denies SI/HI. Her mood is stable. Her thoughts are future oriented and no longer feeling depressed. She will follow up with the appointemnts that have been arranged for her. She has no complaints. Time spent discussing smoking cessation with patient: 3 to 10 minutes Does patient wish to continue nicotine replacement upon disc: Yes (Rx continued on outpaient basis. ) - Time Spent with Patient Total time spent providing and/or coordinating discharge services: 20 min Less than 30 minutes Assessment and Plan - Patient/Caregiver Discharge Instructions Activity: resume usual activities as tolerated Diet: regular diet - Follow up Plan Follow up with: [facility] [Outside] - 01/21/18 3:00 pm (The above appointment is with Yareli Shirley for mental health counseling services. You will also see Dr. Messina for outpatient psychiatric assessment and medication management services on 02/03/2018 at 1:00 PM. Please note this is a new appointment date and time. Your previously scheduled appointment with Dr. Messina had to be changed. Please arrive 10 minutes early to all appointments to complete the check-in process. Please bring your insurance card (or [facility] award letter) and photo ID. If you are unable to keep any scheduled appointment, 24 hour business notice of cancellation is expected. The above appointment(s) reflects first availability. You may contact the office regularly to check for cancellations that may allow you to be seen sooner. ) Functional capacity at discharge: independent ambulation Overall status at discharge: Stable Disposition: Home, Self-Care Quality - Multiple Antipsychotics Patient discharged on 2 or more antipsychotic medications: No Procedures - Procedures Procedures: Medication Management, Supportive Therapy
[2018-01-18] MEDS: Valproic Acid 250 MG CAPSULE PO SCH (09:12)
[2018-01-18] MEDS: Venlafaxine XR (24 HR) 75 MG CAP.ER.24H PO SCH (09:12)
[2018-01-18] MEDS: Nicotine 21 MG PATCH.TD24 TD SCH (09:13)
[2018-01-18] MEDS: hydrOXYzine pamoate 25 MG CAPSULE PO SCH (09:13)
[2018-01-18 09:51] VITALS: BP 123/79
== END 2018-01-18 13:10 | disposition home or self-care (01) | DRG 885 ==
LOC: EMEROO 11:57 → 1ANU 15:16 → SUATTDRO 15:16 → 1ANU 16:48
PROVIDERS: ADMIT Psychiatry & Neurology Psychiatry; ATTEND Psychiatry & Neurology Psychiatry